=== PATIENT | female | born 1955 | race Caucasian/White ===

== ENCOUNTER 2018-07-13 14:10 | Inpatient (IN) | payer MEDICARE, OTHER ==
[~2018-07-13] VITALS: Ht 162.6 cm; Wt 60.0 kg
[2018-07-13 14:45] LABS: BASOPHILS % (AUTO) 0.4 % (0.0-2.0); EOSINOPHILS % (AUTO) 1.6 % (0.0-7.0); HEMATOCRIT 30.2 % (31.2-41.9); HEMOGLOBIN 10.9 g/dL (10.9-14.3); LYMPHOCYTES # (AUTO) 0.9 K/uL (20.0-40.0); LYMPHOCYTES % (AUTO) 39.7 % (20.5-51.5); MEAN CORPUSCULAR HEMOGLOBIN 33.9 uug (24.7-32.8); MEAN CORPUSCULAR HGB CONC 36 g/dL (32.3-35.6); MEAN CORPUSCULAR VOLUME 94.1 fL (75.5-95.3); MONOCYTES # (AUTO) 0.2 K/uL (2.0-10.0); MONOCYTES % (AUTO) 8.2 % (0.0-11.0); NEUTROPHILS # (AUTO) 1.2 K/uL (1.8-8.9); NEUTROPHILS % (AUTO) 50.1 % (38.5-71.5); PLATELET COUNT (AUTO) 89 K/uL (179-408); RED BLOOD CELL COUNT(AUTO) 3.21 MIL/uL (3.63-4.92); WHITE BLOOD COUNT (AUTO) 2.4 K/uL (3.8-11.8)
[2018-07-13 14:54] LABS: CREATININE 1.3 mg/dL (0.6-1.3); POTASSIUM 4.3 mmol/L (3.5-5.1)
[2018-07-13 15:06] LABS: BILIRUBIN,DIRECT 0.5 mg/dL (0.0-0.2); TOTAL PROTEIN, SERUM 9.3 g/dL (6.4-8.2)
[2018-07-13] MEDS ORDERED: IV NORMAL SALINE 1000 ML BAG IV ONE (15:15)
[2018-07-13 15:17] LABS: EOSINOPHILS % (MANUAL) 1 % (0-8); LYMPHOCYTES % (MANUAL) 38 % (20-40); MONOCYTES % (MANUAL) 7 % (2-10); NEUTROPHILS % (MANUAL) 54 % (42-75)
[2018-07-13] MEDS ORDERED: VANCOMYCIN IV 1,000 MG in IV DEXTROSE 5% 250 ML IV ONE (15:30)
[2018-07-13] MEDS ORDERED: PIPERACILLIN SODIUM/TAZOBACTAM 3.375 G in IV DEXTROSE 5% 50 ML IV ONE (15:30)
[2018-07-13] MEDS ORDERED: PIPERACILLIN/TAZOBACTAM/D5W 50 ML IV ONE (15:53)
[2018-07-13] MEDS ORDERED: SULF1TAB48 PO (16:21)
[2018-07-13] MEDS ORDERED: LEVO150T PO (16:21)
[2018-07-13] MEDS ORDERED: FAMO-132 PO (16:21)
[2018-07-13] MEDS ORDERED: LACT1TAB13 PO (16:21)
[2018-07-13] MEDS ORDERED: ACET325C3 PO (16:21)
[2018-07-13] MEDS ORDERED: LATA2.5D2 EACHEYE (16:21)
[2018-07-13] MEDS ORDERED: FOLI1TAB16 PO (16:21)
[2018-07-13] MEDS ORDERED: PEG15DRO5 OP (16:21)
[2018-07-13] MEDS ORDERED: ONDA4TAB5 PO (16:21)
[2018-07-13] MEDS ORDERED: DARU800T2 PO (16:21)
[2018-07-13] MEDS ORDERED: CHOL400C8 PO (16:21)
[2018-07-13] MEDS ORDERED: EMTR1TAB6 PO (16:21)
[2018-07-13] MEDS ORDERED: RITO100T PO (16:21)
[2018-07-13] MEDS ORDERED: MAGN400C PO (16:21)
[2018-07-13] MEDS ORDERED: SODI1TAB3 PO (16:21)
[2018-07-13] MEDS ORDERED: OMEG-143 PO (16:21)
[2018-07-13] MEDS ORDERED: CALC-261 PO (16:21)
[2018-07-13] MEDS ORDERED: ACET325T53 PO (16:21)
[2018-07-13] MEDS ORDERED: MAGN400O6 PO (16:21)
[2018-07-13] MEDS ORDERED: ZOLP5TAB2 PO (16:21)
[2018-07-13] MEDS ORDERED: CITA10TA17 PO (16:21)
[2018-07-13] MEDS ORDERED: VORI200T4 PO (16:21)
[2018-07-13] MEDS ORDERED: VANCOMYCIN IV 200 ML ONE (17:01)
[2018-07-13] MEDS ORDERED: MAGNESIUM HYDROXIDE 30 ML LIQUID UDC PO PRN (17:30)
[2018-07-13] MEDS ORDERED: Z GUARD REMEDY PASTE 57 GM TUBE TOP PRN (17:30)
[2018-07-13] MEDS ORDERED: HYDROCODONE/APAP 5-325MG TABLET PO PRN (17:30)
[2018-07-13] MEDS ORDERED: ACETAMINOPHEN 325 MG TABLET PO PRN (17:30)
[2018-07-13] MEDS ORDERED: ONDANSETRON 4 MG/2 ML VIAL IV PRN (17:30)
[2018-07-13 18:54] VITALS: BP 106/78
[2018-07-13 20:17] VITALS: BP 114/65
[2018-07-13] MEDS: LATANOPROST OPHT DROP 2.5 ML BOTTLE EACHEYE SCH (21:34)
[2018-07-13] MEDS: ZOLPIDEM 5 MG TABLET PO SCH (21:36)
[2018-07-13] MEDS ORDERED: VANCOMYCIN IV 1 G in PREMIXED 0 EACH IV ONE (22:00)
[2018-07-13] MEDS ORDERED: VANCOMYCIN 1000 MG VIAL ONE (22:34)
[2018-07-13] MEDS ORDERED: VANCOMYCIN IV 1,000 MG in IV NORMAL SALINE 250 ML IV ONE (22:51)
[2018-07-13] MEDS ORDERED: PIPERACILLIN SODIUM/TAZO 3.375 GM VIAL ONE (23:15)
[2018-07-13] MEDS: PIPERACILLIN/TAZOBACTAM/D5W 50 ML IV SCH (23:25)
[2018-07-14] MEDS: PIPERACILLIN/TAZOBACTAM/D5W 50 ML IV SCH ×3 (05:09→20:08)
[2018-07-14 06:09] VITALS: BP 95/54
[2018-07-14] MEDS: LEVOTHYROXINE SODIUM 150 MCG TABLET PO SCH (06:16)
[2018-07-14 06:49] LABS: BASOPHILS % (AUTO) 0.5 % (0.0-2.0); EOSINOPHILS % (AUTO) 2.1 % (0.0-7.0); HEMATOCRIT 29.4 % (31.2-41.9); HEMOGLOBIN 10.3 g/dL (10.9-14.3); LYMPHOCYTES # (AUTO) 0.9 K/uL (20.0-40.0); LYMPHOCYTES % (AUTO) 39.1 % (20.5-51.5); MEAN CORPUSCULAR HEMOGLOBIN 32.9 uug (24.7-32.8); MEAN CORPUSCULAR HGB CONC 35 g/dL (32.3-35.6); MEAN CORPUSCULAR VOLUME 94.2 fL (75.5-95.3); MONOCYTES # (AUTO) 0.2 K/uL (2.0-10.0); MONOCYTES % (AUTO) 7.9 % (0.0-11.0); NEUTROPHILS # (AUTO) 1.2 K/uL (1.8-8.9); NEUTROPHILS % (AUTO) 50.4 % (38.5-71.5); PLATELET COUNT (AUTO) 82 K/uL (179-408); RED BLOOD CELL COUNT(AUTO) 3.12 MIL/uL (3.63-4.92); WHITE BLOOD COUNT (AUTO) 2.3 K/uL (3.8-11.8)
[2018-07-14 07:22] LABS: CREATININE 1.2 mg/dL (0.6-1.3); MAGNESIUM 1.7 mg/dL (1.8-2.4); PHOSPHOROUS 3.2 mg/dL (2.5-4.9); POTASSIUM 3.9 mmol/L (3.5-5.1)
[2018-07-14] MEDS: FOLIC ACID 1 MG TABLET PO SCH (08:03)
[2018-07-14] MEDS: SULFAMETH/TRIMETH 800/160 MG TABLET PO SCH (08:03)
[2018-07-14] MEDS: CITALOPRAM 10 MG TABLET PO SCH (08:03)
[2018-07-14] MEDS: FAMOTIDINE 20 MG TABLET PO SCH (08:03)
[2018-07-14] MEDS: CALCIUM CARB/VITAMIN D 500MG-200UNITS TABLET PO SCH (08:03)
[2018-07-14] MEDS: SODIUM CHLORIDE 1,000 MG TABLET PO SCH ×2 (08:03→16:03)
[2018-07-14] MEDS ORDERED: Medication Not On Formulary EA (Sodium Chloride 1 GM) PO SCH (09:00)
[2018-07-14] MEDS ORDERED: VANCOMYCIN IV 1 G in PREMIXED 0 EACH IV ONE (09:00)
[2018-07-14] MEDS: VORICONAZOLE 200 MG TABLET PO SCH ×2 (09:16→17:09)
[2018-07-14 11:36] VITALS: BP 119/69
[2018-07-14] MEDS ORDERED: MAGNESIUM OXIDE 400 MG TABLET PO ONE (14:00)
[2018-07-14 15:40] VITALS: BP 119/68
[2018-07-14] MEDS: NORVIR 100 MG PO SCH (17:16)
[2018-07-14] MEDS: TRUVADA PO SCH (17:16)
[2018-07-14] MEDS: DARUNAVIR 800 MG PO SCH (17:16)
[2018-07-14 19:35] VITALS: BP 100/63
[2018-07-14] MEDS: LATANOPROST OPHT DROP 2.5 ML BOTTLE EACHEYE SCH (20:08)
[2018-07-14] MEDS: ZOLPIDEM 5 MG TABLET PO SCH (21:06)
[2018-07-15] MEDS: PIPERACILLIN/TAZOBACTAM/D5W 50 ML IV SCH ×4 (01:09→20:11)
[2018-07-15 03:24] VITALS: BP 99/56
[2018-07-15] MEDS: LEVOTHYROXINE SODIUM 150 MCG TABLET PO SCH (06:24)
[2018-07-15 07:16] LABS: CREATININE 1.2 mg/dL (0.6-1.3); MAGNESIUM 2.1 mg/dL (1.8-2.4); POTASSIUM 4.5 mmol/L (3.5-5.1); VANCOMYCIN,RANDOM 6.8 ug/mL (18.0-26.0)
[2018-07-15] MEDS ORDERED: VANCOMYCIN IV 1 G in PREMIXED 0 EACH IV ONE (09:00)
[2018-07-15] MEDS: VORICONAZOLE 200 MG TABLET PO SCH ×2 (09:45→17:22)
[2018-07-15] MEDS: SODIUM CHLORIDE 1,000 MG TABLET PO SCH ×2 (09:46→17:22)
[2018-07-15] MEDS: CITALOPRAM 10 MG TABLET PO SCH (09:46)
[2018-07-15] MEDS: FOLIC ACID 1 MG TABLET PO SCH (09:46)
[2018-07-15] MEDS: SULFAMETH/TRIMETH 800/160 MG TABLET PO SCH (09:46)
[2018-07-15] MEDS: FAMOTIDINE 20 MG TABLET PO SCH (09:46)
[2018-07-15] MEDS: CALCIUM CARB/VITAMIN D 500MG-200UNITS TABLET PO SCH (09:46)
[2018-07-15] MEDS: NORVIR 100 MG PO SCH (09:47)
[2018-07-15] MEDS: DARUNAVIR 800 MG PO SCH (09:47)
[2018-07-15] MEDS: TRUVADA PO SCH (09:48)
[2018-07-15 11:40] VITALS: BP 107/61
[2018-07-15 16:11] VITALS: BP 106/67
[2018-07-15 20:06] VITALS: BP 121/69
[2018-07-15] MEDS: ZOLPIDEM 5 MG TABLET PO SCH (20:11)
[2018-07-15] MEDS: LATANOPROST OPHT DROP 2.5 ML BOTTLE EACHEYE SCH (20:11)
[2018-07-16 05:12] VITALS: BP 106/65
[2018-07-16] MEDS: LEVOTHYROXINE SODIUM 150 MCG TABLET PO SCH (06:42)
[2018-07-16] MEDS: CITALOPRAM 10 MG TABLET PO SCH (08:42)
[2018-07-16] MEDS: FOLIC ACID 1 MG TABLET PO SCH (08:42)
[2018-07-16] MEDS: SULFAMETH/TRIMETH 800/160 MG TABLET PO SCH (08:42)
[2018-07-16] MEDS: VORICONAZOLE 200 MG TABLET PO SCH ×2 (08:42→17:02)
[2018-07-16] MEDS: TRUVADA PO SCH (08:43)
[2018-07-16] MEDS: FAMOTIDINE 20 MG TABLET PO SCH (08:43)
[2018-07-16] MEDS: SODIUM CHLORIDE 1,000 MG TABLET PO SCH ×2 (08:43→17:02)
[2018-07-16] MEDS: DARUNAVIR 800 MG PO SCH (08:43)
[2018-07-16] MEDS: CALCIUM CARB/VITAMIN D 500MG-200UNITS TABLET PO SCH (08:43)
[2018-07-16] MEDS: NORVIR 100 MG PO SCH (08:43)
[2018-07-16 08:46] LABS: BASOPHILS % (AUTO) 0.6 % (0.0-2.0); EOSINOPHILS % (AUTO) 1.6 % (0.0-7.0); HEMATOCRIT 30.2 % (31.2-41.9); HEMOGLOBIN 10.5 g/dL (10.9-14.3); LYMPHOCYTES # (AUTO) 1.2 K/uL (20.0-40.0); LYMPHOCYTES % (AUTO) 45.2 % (20.5-51.5); MEAN CORPUSCULAR HGB CONC 35 g/dL (32.3-35.6); MEAN CORPUSCULAR VOLUME 95.1 fL (75.5-95.3); MONOCYTES # (AUTO) 0.2 K/uL (2.0-10.0); MONOCYTES % (AUTO) 6.6 % (0.0-11.0); NEUTROPHILS # (AUTO) 1.2 K/uL (1.8-8.9); PLATELET COUNT (AUTO) 83 K/uL (179-408); RED BLOOD CELL COUNT(AUTO) 3.17 MIL/uL (3.63-4.92); WHITE BLOOD COUNT (AUTO) 2.6 K/uL (3.8-11.8)
[2018-07-16 09:01] LABS: BILIRUBIN,TOTAL 0.9 mg/dL (0.2-1.0); CREATININE 1.2 mg/dL (0.6-1.3); MAGNESIUM 2.2 mg/dL (1.8-2.4); PHOSPHOROUS 2.9 mg/dL (2.5-4.9); POTASSIUM 4.4 mmol/L (3.5-5.1)
[2018-07-16 11:10] VITALS: BP 99/62
[2018-07-16] MEDS ORDERED: VANC1PLA11 IV (15:12)
[2018-07-16] MEDS ORDERED: PIPE3.379 IV (15:13)
[2018-07-16 15:25] VITALS: BP 116/66
== END 2018-07-16 20:19 | DRG 193 ==
LOC: ER 14:10 → MEDSURG3 18:16
PROVIDERS: ADMIT Internal Medicine; ATTEND Internal Medicine
DX: J15.9 Unspecified bacterial pneumonia (principal); D61.811 Other drug-induced pancytopenia; D61.818 Other pancytopenia; E22.2 Syndrome of inappropriate secretion of antidiuretic hormone; E86.1 Hypovolemia; E03.9 Hypothyroidism, unspecified; K21.9 Gastro-esophageal reflux disease without esophagitis; H04.129 Dry eye syndrome of unspecified lacrimal gland; G47.00 Insomnia, unspecified; F41.9 Anxiety disorder, unspecified; H40.9 Unspecified glaucoma; E78.5 Hyperlipidemia, unspecified; R13.10 Dysphagia, unspecified; K59.00 Constipation, unspecified; I70.0 Atherosclerosis of aorta; I35.0 Nonrheumatic aortic (valve) stenosis; I11.9 Hypertensive heart disease without heart failure; Z98.2 Presence of cerebrospinal fluid drainage device; Z79.890 Hormone replacement therapy; Z79.899 Other long term (current) drug therapy; Z86.79 Personal history of other diseases of the circulatory system; T50.905A Adverse effect of unspecified drugs, medicaments and biological substances, initial encounter; Y92.129 Unspecified place in nursing home as the place of occurrence of the external cause; Y92.239 Unspecified place in hospital as the place of occurrence of the external cause
CPT/HCPCS: 36415; 70030-TC; 71045; 83605; 83690; 83735; 84100; 85025; 87040; 92526; 92610; 93005; 97110; 97116; 97530; A4663; G0378; J2543; J3370; J7030; J7040; J7060